=== PATIENT | female | born 1985 | race Caucasian/White ===

== ENCOUNTER 2020-09-13 16:36 | Emergency (ER) | payer OTHER ==
[2020-09-13 17:35] LABS: HEMOGLOBIN 13.6 gm/dl (12.3-15.3); RED BLOOD COUNT 4.82 M/UL (4.00-5.10); WHITE BLOOD COUNT 13.3 K/UL (4.5-11.0)
[2020-09-13 17:53] LABS: BUN/CREATININE RATIO 14 (0-10)
[2020-09-13] MEDS ORDERED: CEFUROXIME500 MG PO (22:42)
== END 2020-09-13 22:30 | disposition home or self-care (01) ==
LOC: ER1 16:36
PROVIDERS: Physician Assistant
DX: N39.0 Urinary tract infection, site not specified (principal); K58.9 Irritable bowel syndrome, unspecified; Z88.0 Allergy status to penicillin; I10 Essential (primary) hypertension
CPT/HCPCS: 80053; 81001; 83690; 84703; 85025; 96374; 99284; J0696; J2405; J7030; Q9967